=== PATIENT | female | born 1980 | race Caucasian/White ===

== ENCOUNTER → 2019-10-06 13:59 | Outpatient (BNVA) | payer BC, SELFPAY | PROVIDERS: Visit Provider Nurse Practitioner Women's Health | DX: O09.522 Supervision of elderly multigravida, second trimester (principal); O99.332 Smoking (tobacco) complicating pregnancy, second trimester; Z3A.13 13 weeks gestation of pregnancy | CPT/HCPCS: 80307; 80500; 84315; 85027; 86592; 86762; 86803; 86850; 86870; 86886; 86900; 86902; 87086; 87340; 87806 ==

== ENCOUNTER → 2019-10-11 08:06 | Outpatient (BNVA) | payer BC, SELFPAY | PROVIDERS: Visit Provider Obstetrics & Gynecology Female Pelvic Medicine and Reconstructive Surgery | DX: O09.522 Supervision of elderly multigravida, second trimester (principal); O36.0920 Maternal care for other rhesus isoimmunization, second trimester, not applicable or unspecified; O09.299 Supervision of pregnancy with other poor reproductive or obstetric history, unspecified trimester | CPT/HCPCS: 84315; 87491; 87591 ==

== ENCOUNTER → 2019-10-20 09:07 | Outpatient (BNVA) | payer BC, SELFPAY | PROVIDERS: Visit Provider Obstetrics & Gynecology Female Pelvic Medicine and Reconstructive Surgery | DX: O09.522 Supervision of elderly multigravida, second trimester (principal); O36.0920 Maternal care for other rhesus isoimmunization, second trimester, not applicable or unspecified; O09.299 Supervision of pregnancy with other poor reproductive or obstetric history, unspecified trimester | CPT/HCPCS: 82950 ==

== ENCOUNTER → 2019-11-09 08:09 | Outpatient (BNVA) | payer BC, SELFPAY | PROVIDERS: Visit Provider Obstetrics & Gynecology | DX: O09.299 Supervision of pregnancy with other poor reproductive or obstetric history, unspecified trimester (principal); O36.0920 Maternal care for other rhesus isoimmunization, second trimester, not applicable or unspecified | CPT/HCPCS: 84315; 86850; 86870; 86886 ==

== ENCOUNTER → 2019-11-24 08:10 | Outpatient (BNVA) | payer BC, SELFPAY | PROVIDERS: Visit Provider Obstetrics & Gynecology | DX: Z36.89 Encounter for other specified antenatal screening (principal); Z3A.21 21 weeks gestation of pregnancy | CPT/HCPCS: 76805 ==

== ENCOUNTER → 2019-11-29 15:39 | Outpatient (BNVA) | payer BC, SELFPAY | PROVIDERS: Visit Provider Obstetrics & Gynecology | DX: O09.299 Supervision of pregnancy with other poor reproductive or obstetric history, unspecified trimester (principal); O09.522 Supervision of elderly multigravida, second trimester; O36.0920 Maternal care for other rhesus isoimmunization, second trimester, not applicable or unspecified; O99.332 Smoking (tobacco) complicating pregnancy, second trimester; F17.210 Nicotine dependence, cigarettes, uncomplicated; Z3A.21 21 weeks gestation of pregnancy | CPT/HCPCS: 84315 ==

== ENCOUNTER → 2019-12-22 16:05 | Outpatient (BNVA) | payer BC, SELFPAY | PROVIDERS: Visit Provider Obstetrics & Gynecology | DX: O09.522 Supervision of elderly multigravida, second trimester (principal); O36.0920 Maternal care for other rhesus isoimmunization, second trimester, not applicable or unspecified | CPT/HCPCS: 84315; 86886 ==

== ENCOUNTER → 2020-01-18 08:44 | Outpatient (BNVA) | payer BC, SELFPAY | PROVIDERS: Visit Provider Obstetrics & Gynecology | DX: O09.522 Supervision of elderly multigravida, second trimester (principal); O36.0920 Maternal care for other rhesus isoimmunization, second trimester, not applicable or unspecified; O09.299 Supervision of pregnancy with other poor reproductive or obstetric history, unspecified trimester; O99.332 Smoking (tobacco) complicating pregnancy, second trimester | CPT/HCPCS: 82950; 84315; 85027; 86870; 86886 ==

== ENCOUNTER → 2020-03-01 08:33 | Outpatient (BNVA) | payer BC, SELFPAY | PROVIDERS: Visit Provider Obstetrics & Gynecology | DX: O09.299 Supervision of pregnancy with other poor reproductive or obstetric history, unspecified trimester (principal); O09.522 Supervision of elderly multigravida, second trimester; Z3A.00 Weeks of gestation of pregnancy not specified | CPT/HCPCS: 84315; 87081 ==

== ENCOUNTER 2020-03-20 04:00 | Inpatient (IN) | payer BC, SELFPAY ==
[2020-03-20] VITALS (184 sets, daily range): BP systolic 0–147; BP diastolic 0–98; PULSE 76–120; RESP 17; TEMP 36.3–37.2; O2SAT 92–99; BMI 35.6
[2020-03-20] MEDS: lactated ringers 1,000 ML 999 ML IV ×3 (05:00→18:48)
[2020-03-20 05:01] LABS: Basophils # 0.1 10^3/uL (0.0-0.1); Basophils % 0.5 %; Eosinophils # 0.1 10^3/uL (0.0-0.8); Hematocrit 32.8 % (37.0-47.0); Lymphocytes % 26.1 %; Mean Corpuscular HGB Conc 33.5 g/dL (30.0-36.0); Mean Corpuscular Hemoglobin 34.1 pg (28.0-34.0); Mean Corpuscular Volume 101.5 fL (81-99); Mean Platelet Volume 10.5 fL (7.4-10.4); Monocytes # 1.1 10^3/uL (0.2-0.9); Monocytes % 9.3 %; Neutrophils # 7.21 10^3/uL (1.8-7.7); Neutrophils % 62.5 %; Nucleated Red Blood Cells % 0 %; Platelet Count 277 10^3/cmm (130-400); Red Blood Count 3.23 10^6/uL (4.1-5.3); Red Cell Distribution Width 12.5 % (12.1-15.1); White Blood Count 11.6 10^3/uL (4.0-10.0)
[2020-03-20] MEDS: oxytocin 30 UNIT/500 ML BAG IV (05:28)
[2020-03-20] MEDS: dextrose 5%-lactated ringers 1,000 ML 125 ML IV ×2 (05:32→13:46)
--- NOTE | 2020-03-20 09:46 | ANES.PROC ---
Anesthesia Procedures Procedure/Date: 03/20/20 Epidural: Epidural procedure: 1% lidocaine to numb the area, neg for paresthesia, test dose given, 1.5% xylocaine 1:200k epi and no systemic response
--- NOTE | 2020-03-20 12:51 | PC.NURSE ---
Pt has asked multiple times this shift if she can leave the floor to smoke. Education on non smoking policy and oxygen safety provided each time. Offered to call Dr for order for nicotine patch or gum, pt refused multiple times, stating the patch gives me a rash and the gum gives me heart burn, this is going to be a long fucking day . Dr Schwarz notifed that pt is very agitated over this. Pt allowed up to ambulate in [place], instructed not to leave floor, pt states is there a fire exit because if not I will make one . Again discussed policy of not leaving the floor until discharge, and if she does leave it will be Against Medical Advise. Pt and SO voiced understanding.
--- NOTE | 2020-03-20 18:52 | ANES.PROC ---
Anesthesia Procedures Procedure/Date: 03/20/20 Epidural: Time Out Performed: Yes Consents Signed: Procedure Consent Consent: requested by attending/covering physician Lumbar Level: L3-L4 Epidural position: sitting Epidural procedure: sterile prep of area, 1% lidocaine to numb the area, 18 g needle, neg for paresthesia (transient with catheter passage), 0.2% Ropivacaine bolus ml (10), placed PCEA, no systemic response, sterile dressing applied and 0.2% Ropiavacaine @ mls/hr (13)
--- NOTE | 2020-03-20 18:54 | ANES.PREANE2 ---
Pre-Anesthetic Assessment Pre-Anesthetic Assessment: Height/Weight: Height 1.65 m Weight 97.069 kg Temp Pulse Resp BP Pulse Ox 98.0 F 109 H 17 98/52 97 03/20/20 15:11 03/20/20 18:51 03/20/20 15:11 03/20/20 18:51 03/20/20 18:52 Preop Diagnosis: labor epi Was Beta Anika taken within 24 hours: N/A Last Intake: 12:00 Exam: Pre-Anes Outpt Exam: oriented x 3 Airway: Submandibular: WNL Cervical ROM: WNL MP: 2 History/ROS: No significant history except as noted Anesthetic Plan: ASA status: 2E Anesthesia: Regional (specify below) Meds/Allergies Current Medications: Current Medications Generic Name Dose Route Start Last Admin Trade Name Freq PRN Reason Stop Dose Admin Dextrose/Lactated Ringer's 1,000 mls @ 125 m ls/hr 03/20/20 04:45 03/20/20 18:10 Dextrose 5%-Lact ated Ringers IV Infused .Q8H MILDRED Infusion Lactated Ringer's 1,000 mls @ 999 m ls/hr 03/20/20 04:41 03/20/20 17:46 Lactated Ringers IV 999 mls/hr .Q1H1M PRN Administration Per L&D Rescitati on Protocol Oxytocin 30 unit in 500 ml s @ 1 mls/hr 03/20/20 04:45 03/20/20 16:38 Pitocin IV 24 milliunit/min .Q24H MILDRED 24 mls/hr Titration Protocol 1 MILLIUNIT/MIN Ropivacaine 200 mg in 100 mls @ 13 mls/hr 03/20/20 18:00 03/20/20 18:48 Naropin Premix EPIDURAL 13 mls/hr .Q7H42M MILDRED Administration PFSH Anesthesia PFSH: Medical History No pertinent past medical history Denies diabetes, asthma, hypertension, seizures, DVT/PE PMD: none Surgical History H/O dilation and curettage 1998, treatment for hemorrhage H/O knee surgery 1993, Arthroscopic surgery on her right knee for a torn cartilage History of tonsillectomy in 1982 Family History Mother Cancer Breast cancer in her 40s Father Diabetes Hyperlipidemia Hypertension Stroke Heart disease Denies family history of Colon cancer Ovarian cancer Family history of thyroid problem Uterine cancer Female Reproductive History: : 5 Data Anesthesia CBC & Chem 7: 03/20/20 04:40 Other Labs: Laboratory Results - last 48 hr 03/20/20 03/20/20 04:40 04:40 WBC 11.6 H RBC 3.23 L Hgb 11.0 L Hct 32.8 L MCV 101.5 H MCH 34.1 H MCHC 33.5 RDW 12.5 Plt Count 277 MPV 10.5 H Neut % (Auto) 62.5 Lymph % (Auto) 26.1 Trinity % (Auto) 9.3 Eos % (Auto) 1.0 Baso % (Auto) 0.5 Neut # (Auto) 7.21 Lymph # (Auto) 3.0 Trinity # (Auto) 1.1 H Eos # (Auto) 0.1 Baso # (Auto) 0.1 Nucleated RBC % (auto) 0 Nucleated RBCs # 0.0 Blood Type O Positive Rho(D) Type Positive Antibody Screen Positive Antibody Identification Anti-E Crossmatch See Detail Cardiac Studies: No Data to Display
[2020-03-21] VITALS (25 sets, daily range): BP systolic 0–136; BP diastolic 0–86; PULSE 20–123; RESP 16–18; TEMP 36.4–36.9; O2SAT 88–98
[2020-03-21] MEDS: famotidine 20 mg/2 mL INJ IVP (00:36)
[2020-03-21] MEDS: metoclopramide 5 mg/mL SDV 2 mL 10 MG IVP (00:36)
[2020-03-21] MEDS: citric acid-sodium citrate 30 mL UDC PO (00:36)
[2020-03-21] MEDS: lactated ringers 1,000 ML 999 ML IV (00:36)
[2020-03-21] MEDS: carboprost tromethamine 250 mcg/mL Amp IM (01:21)
--- NOTE | 2020-03-21 02:07 | PM.OP ---
Operative Report Date of procedure: March 21, 2020 OPERATIVE REPORT Date of surgery:03/21/2020 Date of dictation: 03/21/2020 Preoperative diagnosis: 40-year-old 5 para 2-0-2-2 at 37 weeks and 3 days gestation, arrest of descent, history of macrosomia, history of hemorrhage, anti-E antibody, advanced maternal age, polyhydramnios, tobacco use in Postoperative diagnosis/findings: Same, baby boy Luis weighing 8 pounds 6 ounces Apgars 9/9, clear fluid, normal tubes and ovaries bilaterally Procedure done: Primary low transverse delivery via Pfannenstiel incision. Specimens removed/disposition of specimens: Placenta and cord which were discarded Surgeon: Dr. Chelita Schwarz Clinical Molecular Geneticist: Alma Ellis Anesthesia: Epidural anesthesia Estimated blood loss: 900 ml Intravenous fluids: 1400 mL of LR Urine output: 100 mL of clear but concentrated urine at the end of procedure Medications: As per anesthesia records, 800 mcg of Cytotec, 1 dose of Hemabate and 1 dose of Methergine Complications: None patient was left to recover in a stable condition Indication for surgery: Ms. Andino is a 40-year-old 5 para 2-0-2-2 at 37 weeks and 3 days gestation who presented to labor at 4 AM on 03/20/2020 for central induction of labor for anti-antibodies per [facility] recommendation. On initial exam she was noted to be 3 to 4 cm, 50% however -4 station and ballotable. History was significant for anti-antibodies, history of hemorrhage, history of macrosomia as well as polyhydramnios. tracing was category 1 and she was comfortable. Induction was started with Pitocin titrated to a maximum of 20 mIU which was given for about 9 hours. She made minimal cervical change to 4 to 5 cm, 50% and -4 station. Pitocin was stopped for a period of 2 to 3 hours and she was allowed to rest and Pitocin was restarted again titrated to a maximum of 26 mIU. With this she started to get more uncomfortable. She was examined at about 5:30 PM and was noted to be around 5 to 6 cm in the head was -3 and less ballotable and artificial rupture of membranes was performed at this time with clear fluid. She made slow cervical change and was fully dilated at 9:20 PM and was still about -2 station. She was allowed to labor down and then started pushing. A combination of laboring down and pushing was done for about 3-1/2 hours and she made minimal to no size change in the station of the head and the lowest the head got was a -120 station with pushing. Given this decision was made to proceed with for arrest of descent. PROCEDURE: After consent was obtained, patient was taken to the operating room where epidural anesthesia was placed without difficulty. She was placed supine on the table with a left lateral wedge. Horvath catheter and SCDs were placed. The abdomen was shaved and then prepped with duo prep. She was draped in a sterile fashion. After checking adequacy of anesthesia, a Pfannenstiel incision was made 2 cm above the pubic symphysis. The incision was carried down to the fascia using the Bovie. The fascia was nicked in the midline and the fascial incision was extended laterally using curved Mayos. The inferior aspect of the fascia was grasped with shalom clamps and dissected off from the underlying rectus muscle. This was repeated again superiorly without any difficulty. The rectus muscle was . A tj was made in the peritoneum and the peritoneal incision was carried inferiorly taking care to proceed in layers so as to avoid the bladder. The peritoneal incision was extended superiorly as well. No adhesions were noted from the uterus to the anterior abdominal wall. The uterus was noted to be rotated to the left. The bladder peritoneum was grasped with smooth forceps a bladder flap was created. the bladder blade was replaced thus protecting the bladder. A LOW TRANSVERSE UTERINE INCISION was made with a scalpel till the amniotic membrane was reached. The uterine incision was then extended laterally using bandage scissors. Amniotomy was done with Allis clamps and clear amniotic fluid was drained. The[default value] head of the baby was brought up to the level of the incision and delivered with fundal pressure. The head was not engaged in the pelvis. The remainder of body followed without any difficulty. The nose and mouth were suctioned, the umbilical cord was clamped and cut and the baby was handed off to the waiting online marketing manager, Dr. Spann. The placenta was delivered spontaneously with fundal massage. It was noted to be intact and was discarded. The interior of the uterus was cleaned of all clot and debris and was noted to be boggy and as a result she was given a single dose of Hemabate followed by a single dose of Methergine and with this the uterus was noted to be alvarez well. The uterus was exteriorized. The uterine incision was closed with 0 Vicryl in a running interlocking manner. Good hemostasis and reapproximation was obtained. Second [id number] sutures were placed to obtain hemostasis and reapproximation. The abdomen was irrigated and the gutters were cleaned of clot and debris. Normal tubes and ovaries were noted bilaterally.. The uterus was placed back into the abdomen and uterine incision was noted to be hemostatic. The peritoneum was closed with a 2-0 plain in a continuous stitch. The rectus muscle was reapproximated with 2-0 plain suture in a mattress stitch. Good hemostasis was noted in the rectus muscle layer. The fascia was inspected for any defects and none were found and the fascia was closed with 0 Vicryl in continuous stitch. The subcutaneous plane was then irrigated and hemostasis was obtained using the Bovie. The subcutaneous plane was then reapproximated using 2-0 plain suture in a continuous manner. The skin was then closed with 4-0 Monocryl in a subcuticular fashion. Good reapproximation and hemostasis was noted. Steri-Strips were applied. The incision was dressed with Telfa ,ABD and paper tape. The fundus was noted to be firm at the end of the procedure and excess blood was expressed from the vagina. The patient was left to recover in a stable condition. Pre-op Diagnosis: labor epi
[2020-03-21] MEDS: ketorolac 30 mg/mL INJ 15 MG IVP (02:30)
[2020-03-21] MEDS: miSOPROStol 200 mcg Tablet 800 MCG PR (05:41)
[2020-03-21] MEDS: methylergonovine 0.2 mg/mL INJ 1 mL IM (05:41)
[2020-03-21] MEDS: dextrose 5%-lactated ringers 1,000 ML 125 ML IV (06:02)
[2020-03-21] MEDS: morphine 4 mg/mL SDV 1 mL 2 MG IVP (08:28)
[2020-03-21] MEDS: prenatal vitamin Capsule 1 CAP PO (08:29)
[2020-03-21] MEDS: docusate sodium 100 mg Capsule PO ×2 (08:29→17:47)
--- NOTE | 2020-03-21 11:00 | PC.NURSE ---
Pt ambulated 5 laps from room to nurses station and back. Pt tolerated well, no complaints at this time. Horvath removed when returned to room
[2020-03-21] MEDS: nicotine 14 mg Patch 1 PATCH TRANSDERMA (12:42)
[2020-03-21 14:45] LABS: Hematocrit 31.8 % (37.0-47.0); Hemoglobin 10.5 g/dL (11.5-15.3); Mean Corpuscular Hemoglobin 33.5 pg (28.0-34.0); Mean Corpuscular Volume 101.6 fL (81-99); Mean Platelet Volume 10.9 fL (7.4-10.4); Platelet Count 285 10^3/cmm (130-400); Red Blood Count 3.13 10^6/uL (4.1-5.3); Red Cell Distribution Width 12.6 % (12.1-15.1)
--- NOTE | 2020-03-21 15:56 | PM.PN ---
Subjective Subjective: Interval history: SUBJECTIVE: Ms. Andino is doing okay today. She states that pain is well controlled with PRN IV medication and she is overall doing good. She is ambulated a little better and wants her catheter out patient denies nausea, vomiting, fever, chills, shortness of breath and chest pain. She is bonding well with her son and continues to desire to have him circumcised. She denies heavy vaginal bleeding. She really wants a cigarette. OBJECTIVE/PHYSICAL EXAM: Gen.: No acute distress Heart: S1-S2 heard, regular rate and rhythm Lungs: Clear to auscultation bilaterally Abdomen: Soft, fundus firm below umbilicus, tenderness around incision. Incision: Dressing on appears clean dry and intact Legs: No calf tenderness, no pedal edema. ASSESSMENT AND PLAN: 40-year-old 5 para 3-0-2-3 status post primary low transverse delivery, postoperative day #0 -continue routine care-encourage ambulation -Plan to DC catheter later today -Clear liquid diet and then full liquid diet and advance to regular diet when passing flatus. -P.o. pain medication-we will try Dilaudid and ibuprofen dressing to come off after 24 hours and will anticipate hep locking IV at that time follow-up CBC - Vitals/I&O/Wt Last Vital Signs Temp 98.3 F 03/21/20 09:58 Pulse 91 03/21/20 09:58 Resp 18 03/21/20 09:58 BP 101/65 03/21/20 09:58 Pulse Ox 95 03/21/20 09:58 03/21/20 03/21/20 03/21/20 06:59 14:59 22:59 Intake Total 170 / 1779.217 Output Total 1650 / 1650 625 / 625 Balance -1480 / 129.217 -625 / -625 Weight last 48 hrs Weight 214 lb Data : 03/21/20 14:15 Attestations Medical Necessity Statement*: She will need to stay 1 to 2 minutes to recover from surgery Coding Level of Care Code Acute Steward/Stewardess Banquet for Nidia Bruner
[2020-03-21] MEDS: ferrous sulfate EC 325 mg Tablet PO (17:48)
[2020-03-22] VITALS (7 sets, daily range): BP systolic 90–141; BP diastolic 52–90; PULSE 74–118; RESP 16–18; TEMP 36.3–36.8
--- NOTE | 2020-03-22 07:14 | P.PN_ITS ---
Subjective Subjective: Interval history: SUBJECTIVE: Ms. Andino is doing well today. She states that she has minimal pain with pain medication although she is trying to avoid narcotics. She has been voiding without any difficulty however has still not yet passed flatus and is a little frustrated by this. She does not like her clear liquid diet. She has been burping. She denies fever, chills, shortness of breath and chest pain. She is formula feeding and bonding well with her child OBJECTIVE/PHYSICAL EXAM: Gen.: No acute distress Heart: S1-S2 heard, regular rate and rhythm Lungs: Clear to auscultation bilaterally Abdomen: Soft, fundus firm below umbilicus, tenderness around incision. Incision: Clean dry and intact with Steri-Strips. Legs: No calf tenderness, trace bilateral pitting pedal edema. ASSESSMENT AND PLAN: 40-year-old status post primary delivery for arrest of descent, postoperative day #1 -Continue routine postoperative care, p.o. pain medication as needed-encourage her to use narcotics so that she can ambulate better -Horvath catheter has been discontinued and hemoglobin is stable at this time -Encourage ambulation and when she passes flatus advance diet to regular diet. She may be able to go home today if this happens otherwise more than likely tomorrow. -Incision care reviewed with patient Vitals/I&O/Wt Last Vital Signs Temp 98.6 F 03/23/20 06:36 Pulse 64 03/23/20 06:36 Resp 18 03/23/20 06:36 BP 120/76 03/23/20 06:36 Pulse Ox 98 03/21/20 21:00 03/22/20 03/23/20 03/23/20 22:59 06:59 14:59 Intake Total 450 / 450 Balance 450 / 450 Data : 03/21/20 14:15 Attestations Medical Necessity Statement*: Needs to stay overnight to recover from surgery Coding Level of Care Code Acute Mechanical Engineering Technologist for Nidia Bruner
--- NOTE | 2020-03-22 08:26 | ANE.PACU2 ---
Inpatient post-anesthesia follow up: Airway intact: Yes Vital signs: Temperature 98.3 F Pulse Rate 82 Respiratory Rate 16 Blood Pressure 90/52 Pulse Oximetry 98 Oxygen Delivery Me thod Room Air Oxygen Flow Rate 2 Fraction of Inspir ed Oxygen Hydration adequate: Yes Nausea and vomiting: No Pain level: 9 Mental status: Baseline Additional Comments: No headache, Lower extremity weakness or sign of infection at spinal site
--- NOTE | 2020-03-22 08:30 | PC.NURSE ---
Pt up ambulating in hallway while baby in nursery, total of 5 laps ambulated around OB unit.
[2020-03-22] MEDS: docusate sodium 100 mg Capsule PO ×2 (09:05→18:18)
[2020-03-22] MEDS: prenatal vitamin Capsule 1 CAP PO (09:05)
[2020-03-22] MEDS: nicotine 14 mg Patch 1 PATCH TRANSDERMA (09:06)
--- NOTE | 2020-03-22 12:06 | PC.RESP ---
Smoking Cessation information sent to patient.
--- NOTE | 2020-03-22 14:20 | PC.NURSE ---
Pt up and moving in room as much as possible attempting to pass gas, hot coffee and prune juice given in attempt at well. Pt attempted position changes such as sitting on the toilet and a hands and knee's position in the bed as well.
--- NOTE | 2020-03-22 17:15 | PC.NURSE ---
Pt educated regarding we are a tobacco free facility and due to covid she is not supposed to leave the unit or hospital until discharge. Pt verbalized understanding and ambulated off unit at this time.
[2020-03-23 03:33] VITALS: RESP 18
[2020-03-23 06:36] VITALS: BP 120/76; PULSE 64; RESP 18; TEMP 37
--- NOTE | 2020-03-23 06:37 | PC.NURSE ---
At 2044 last night, patient called this conventional mortgage underwriter into room. She reported that she had a poof sound come from her rectum but that she didn't know if that would be considered passing flatus. She states it happened again moments later in the shower. Patient does have active bowel sounds in all quadrants when this conventional mortgage underwriter auscultated. Dr. Schwarz notified at 2054 and was told to advance patient's diet but keep her overnight. Patient notified and agreed with plan. This morning patient states she had another small poof but nothing else. Patient still has active bowel sounds in all quadrants. patient ate several snacks throughout the night and denies any nausea or vomiting. Dr. Schwarz aware this morning.
--- NOTE | 2020-03-23 07:47 | PM.DCS ---
Discharge Providers Date of Admission: 03/20/20 04:00 Date of Discharge: March 23, 2020 Attending Provider at Admission: Chelita Carias MD Attending Provider at Discharge: Chelita Carias MD Reason for Visit Reason for Visit: induction Hospital Course Discharge Summary: INDICATION FOR SURGERY Ms. Andino is a 40-year-old 5 para 2-0-2-2 at 37 weeks and 3 days gestation who presented to labor at 4 AM on 03/20/2020 for central induction of labor for anti-antibodies per [facility] recommendation. On initial exam she was noted to be 3 to 4 cm, 50% however -4 station and ballotable. History was significant for anti-antibodies, history of hemorrhage, history of macrosomia as well as polyhydramnios. tracing was category 1 and she was comfortable. Induction was started with Pitocin titrated to a maximum of 20 mIU which was given for about 9 hours. She made minimal cervical change to 4 to 5 cm, 50% and -4 station. Pitocin was stopped for a period of 2 to 3 hours and she was allowed to rest and Pitocin was restarted again titrated to a maximum of 26 mIU. With this she started to get more uncomfortable. She was examined at about 5:30 PM and was noted to be around 5 to 6 cm in the head was -3 and less ballotable and artificial rupture of membranes was performed at this time with clear fluid. She made slow cervical change and was fully dilated at 9:20 PM and was still about -2 station. She was allowed to labor down and then started pushing. A combination of laboring down and pushing was done for about 3-1/2 hours and she made minimal to no size change in the station of the head and the lowest the head got was a -120 station with pushing. Given this decision was made to proceed with for arrest of descent. HOSPITAL COURSE: She underwent an uncomplicated delivery on 03/21/2020 . She did well on day 0 and was ambulating well, tolerating regular diet, voiding freely, passing flatus. She was bottle-feeding without difficulty and bonding well with her son. Circumcision was performed on her son on day of life 1 per her request without any complication. Pain was well-controlled with by mouth pain medication. She denied nausea, vomiting, fever, chills, shortness of breath, leg pain. She had moderate vaginal bleeding. On day # 1 she continued to do well with stable vital signs and stable hemoglobin at 10.5. She was watched overnight as she had not yet passed flatus however she did so later that evening and tolerated regular diet. She was discharged home on day 2 in a stable condition, as she desired early discharge. Warning signs for endometritis, wound infection, mastitis, DVT/PE were reviewed with her. Post delivery activity restrictions were also reviewed with her at all her questions were answered to her satisfaction. Plans on using the Mirena IUD for contraception EXAM AT DISCHARGE: Gen.: No acute distress Heart: S1-S2 heard, regular rate and rhythm Lungs: Clear to auscultation bilaterally Abdomen: Soft, fundus firm below umbilicus, tenderness around incision. Incision: Clean dry and intact with Steri-Strips. Legs: No calf tenderness, trace bilateral pitting pedal edema. CONDITION AT DISCHARGE: Stable Discharge Data Data Completed and Pending: Pending at discharge Category Date Time Status Antibody Identifi cation Routine Lab 03/20/20 04:40 Results PRBC [Leukocyte R educed RBC] Routin e Lab 03/20/20 04:40 Results Type and Screen R outine Lab 03/20/20 04:40 Results Labs from last 24 hours 03/21/20 14:15 WBC 17.0 H RBC 3.13 L Hgb 10.5 L Hct 31.8 L MCV 101.6 H MCH 33.5 MCHC 33.0 RDW 12.6 Plt Count 285 MPV 10.9 H Vitals: Last Vital Signs Temp 98.3 F 03/22/20 06:19 Pulse 82 03/22/20 06:19 Resp 16 03/22/20 06:19 BP 90/52 03/22/20 06:19 Pulse Ox 98 03/21/20 21:00 Discharge Plan Discharge Patient Disposition: Home Condition: Stable Prescriptions: New ibuprofen 800 mg tablet 800 mg PO Q8H Qty: 30 RF: 0 docusate sodium 100 mg Capsule 100 mg PO BID PRN (Reason: constipation) Qty: 30 RF: 0 hydromorphone 4 mg Tablet 2 mg PO Q6H PRN (Reason: Moderate To Severe Pain) 10 Days RF: 0 Discontinued acetaminophen [Tylenol] 325 mg tablet 325 mg PO QID PRN (Reason: Pain) RF: 0 prenat.vits,champ,mpm-iwis-evnun Tablet 1 tab PO DAILY RF: 0 ferrous sulfate 325 mg (65 mg iron) tablet,delayed release (DR/EC) 325 mg PO BID Qty: 90 RF: 2 Discharge Orders: Discharge Order (Routine); Ordered 03/23/20 Ordered By: Chelita Carias Referrals: Chelita Carias MD [Physician] - 04/04/20 10:30 am (* Your 2 week follow up appointment is on 04/04/2020 at 1030 am. * Your 6 week follow up appointment is on 05/02/2020 at 1000) Discharge Diet: Usual diet Patient Instructions: Ibuprofen (By mouth), Hydromorphone (By mouth), Postoperative Bleeding (DC), OB WHC, OB Discharge Report, OB Food/Drug Interaction Guide, OB Home Care, OB Proud Parent Packet Activity Restrictions/Additional Instructions: Pelvic rest for 6 weeks, no heavy lifting for 6 weeks Discharge Date/Time: 03/23/20 12:10 Discharge Attestations Time Spent in Discharge Care*: greater than 30 min Quality Metrics Clinical Quality Measures During this hospital stay, did patient experience: None Coding Level of Care Code Acute Rhic Systems Safety Engineer for Nidia Bruner
[2020-03-23 09:15] VITALS: RESP 18
[2020-03-23] MEDS: prenatal vitamin Capsule 1 CAP PO (09:17)
[2020-03-23] MEDS: ferrous sulfate EC 325 mg Tablet PO (09:17)
[2020-03-23] MEDS: docusate sodium 100 mg Capsule PO (09:17)
[2020-03-23] MEDS: nicotine 14 mg Patch 1 PATCH TRANSDERMA (09:18)
[2020-03-23 09:28] VITALS: BP 132/85; PULSE 80; RESP 16; TEMP 36.8
[2020-03-23 11:01] VITALS: BP 124/81; PULSE 81; RESP 17; TEMP 36.4
== END 2020-03-23 12:10 | disposition home or self-care (01) | DRG 787 ==
PROVIDERS: Admitting Provider Obstetrics & Gynecology; Visit Provider Obstetrics & Gynecology
PROC: 10D00Z1 Extraction of Products of Conception, Low, Open Approach (ICD-10-PCS; CPT 59514; principal; 2020-03-21 01:05)
DX: O32.4XX0 Maternal care for high head at term, not applicable or unspecified (principal); O36.0130 Maternal care for anti-D [Rh] antibodies, third trimester, not applicable or unspecified; Z3A.37 37 weeks gestation of pregnancy; Z37.0 Single live birth
CPT/HCPCS: 12345; 36415; 59025; 59409; 85025; 85027; 86850; 86870; 86900; 86920; 96372; 96375; J1885; J2210; J2270; J2274; J2405; J2765; J2795; J3490; J7030

== ENCOUNTER → 2020-05-17 15:33 | Outpatient (BNVA) | payer BC, SELFPAY | PROVIDERS: Visit Provider Obstetrics & Gynecology | DX: Z30.9 Encounter for contraceptive management, unspecified (principal) | CPT/HCPCS: 81025 ==

== ENCOUNTER → 2021-10-29 14:25 | Outpatient (BNVA) | payer BC, SELFPAY | PROVIDERS: Visit Provider Obstetrics & Gynecology | DX: Z12.4 Encounter for screening for malignant neoplasm of cervix (principal) | CPT/HCPCS: 87624 ==

== ENCOUNTER → 2021-11-06 14:52 | Outpatient (BNVA) | payer BC, SELFPAY | PROVIDERS: Visit Provider Obstetrics & Gynecology | DX: Z30.9 Encounter for contraceptive management, unspecified (principal); Z30.09 Encounter for other general counseling and advice on contraception | CPT/HCPCS: 76857; 81025 ==